=== PATIENT | male | born 1970 | race Caucasian/White ===

== ENCOUNTER → 2020-08-23 | Outpatient (CLI) | payer BC ==
[2020-08-23 10:50] LABS: BUN/CREATININE RATIO 6 (0-10)
== END ==
LOC: US 08:59
PROVIDERS: Internal Medicine
DX: R94.5 Abnormal results of liver function studies (principal); R79.0 Abnormal level of blood mineral; R05 Cough
CPT/HCPCS: 36415; 71046; 76705; 80053

== ENCOUNTER → 2020-08-23 | Outpatient (CLI) | payer BC | LOC: SLEEP 14:27 | DX: G47.33 Obstructive sleep apnea (adult) (pediatric) (principal) | CPT/HCPCS: 95810 ==

== ENCOUNTER → 2021-08-20 | Outpatient (CLI) | payer BC | LOC: KOH-I 10:20 | DX: F17.210 Nicotine dependence, cigarettes, uncomplicated (principal) | CPT/HCPCS: 71271 ==